=== PATIENT | female | born 1945 | race Caucasian/White ===

== ENCOUNTER → 2016-09-12 16:57 | Outpatient (CLI) | payer MEDICARE, OTHER | END | disposition home or self-care (01) | LOC: D.MAMMO 11:15 | DX: Z12.31 Encounter for screening mammogram for malignant neoplasm of breast (principal) ==

== ENCOUNTER → 2018-07-10 08:38 | Outpatient (CLI) | payer MEDICARE, OTHER | END | disposition home or self-care (01) | LOC: D.HCCARDIO 08:38 | PROVIDERS: ATTEND Internal Medicine Cardiovascular Disease | DX: I20.9 Angina pectoris, unspecified (principal); I05.9 Rheumatic mitral valve disease, unspecified; R06.09 Other forms of dyspnea ==

== ENCOUNTER → 2018-07-17 11:39 | Outpatient (CLI) | payer MEDICARE, OTHER | END | disposition home or self-care (01) | LOC: D.HCCARDIO 11:39 | PROVIDERS: ATTEND Internal Medicine Cardiovascular Disease | DX: I34.0 Nonrheumatic mitral (valve) insufficiency (principal) ==

== ENCOUNTER 2018-07-27 10:46 | Outpatient (CLI) | payer MEDICARE, OTHER ==
--- NOTE | ~2018-07-27 | HEMODYNAMI ---
PATIENT:GLENNA CLEMENTS MEDICAL RECORD: [id number] : 41 LOCATION:DEM ADMISSION DATE: 07/27/18 Generatedon:07/27/201813:23 Patient name: GLENNA CLEMENTS Patient #: [id number] SSN: : 1945 Date of study: 07/27/2018 Page: Of Hemodynamic Procedure Report Patient Data Patient Demographics Procedure consent was obtained First Name: GLENNA Gender: Female Last Name: STARR : 1945 [facility] Initial: MARINE Age: 73 year(s) Patient #: [id number] Race: Unknown Additional ID: [id number] Contact details [address]: [address] [place] [address] rd State: [place] City: [place] Zip code: [address] Past Medical History Allergies: No known allergies Admission Admission Data Admission Date: 07/27/2018 Admission Time: 10:46 Arrival Date: 07/27/2018 Arrival Time: 0:00 Admit Source: Other Insurance Payor: Medicare Height (in.): 60.63 BSA: 1.84 (m2) Height (cm.): 154 BMI: 36.26 (kg/m2) Weight (lbs.): 189.6 Weight (kg.): 86 Lab Results Lab Result Date: 07/27/2018 Lab Result Time: 11:15 Biochemistry Name Units Result Min Max BUN mg/dl 33 --(----)-* 7 18 Creatinine mg/dl 1.4 --(----)*- 0.6 1.3 CBC Name Units Result Min Max Hematocrit % 38.8 *-(----)-- 42 54 Hemoglobin g/dl 13 -*(----)-- 13.5 17.5 Procedure Procedure Types Cath Procedure Diagnostic Procedure LHC LHC w/Coronaries Aortic Root Angiography Procedure Description Procedure Date Procedure Date: 07/27/2018 Procedure Start Time: 13:06 Procedure End Time: 13:21 Procedure Staff Name Function Cheryle Villasenor RT Monitor Ravinder Carbajal MD Performing Physician Jae Go RT Scrub Loli Ellington RN Nurse Procedure Data Cath Procedure Fluoroscopy Diagnostic fluoroscopy Total fluoroscopy Time: 4.6 time: 4.6 min min Diagnostic fluoroscopy Total fluoroscopy dose: 739 dose: 739 mGy mGy Contrast Material Contrast Material Type Amount (ml) Isovue 300 100 Entry Location Entry Primary Successful Side Size Upsize Upsize Entry Closure Torres ccessful Closure Location (Fr) 1 (Fr) 2 (Fr) Remarks Device Remarks Radial Right 6 Fr Mechanical artery Short Compression Estimated blood loss: 5 ml Diagnostic catheters Device Type Used For End Catheter Placement DIAGNOSTIC Mobeetie 110cm 5 Multi-vessel Fr catheter ([id number]) Angiography DIAGNOSTIC AR MOD 5Fr Right Coronary Catheter ([id number]) Angiography DIAGNOSTIC Pigtail 5Fr Multi-vessel catheter ([id number]) Angiography Procedure Complications No complications Procedure Medications Medication Administration Route Dosage 0.9% NaCl I.V. 100 ml/hr Oxygen etCO2 Nasal cannula 2 l/min Lidocaine 2% added to field 20 Heparin Flush Bag added to field 2 bags (1000units/500ml NS) Radial Cocktail added to field 1 syringe (Verapomil 2mg/Nitro 400mcg/Heparin 1500units) Versed I.V. 2 mg Fentanyl I.V. 50 mcg Versed I.V. 1 mg Fentanyl I.V. 25 mcg Hemodynamics Rest BSA: 1.84 (m2) HGB: 13 (g/dl) O2 Consumption: Estimated: 169.49 (ml/min) O2 Cons umption indexed: Estimated:92.11 (ml/min/m) Heart Rate: 73 (bpm) Pressure Samples Time Site Value (mmHg) Purpose Heart Use Rate(bpm) 13:10 LV 78/1,15 Snapshot 40 Gradients Valve Time Site Site Mean SEP/DFP Peak To Heart Use 1 2 (mmHg) (sec/min) Peak Rate (mmHg) (bpm) Aortic 13:11 LV AO 111 Snapshots Pre Cath Intra NCS Post Cath Vital Signs Time Heart Resp SPO2 etCO2 NIBP (mmHg) Rhythm Pain Sedation Rate (ipm) (%) (mmHg) Status Level (bpm) 12:45:15 75 17 99 39 125/83(103) NSR 0 (11) 10(A) , No pain 12:49:43 80 15 98 39.8 137/71(102) NSR 0 (11) 10(A) , No pain 12:54:14 76 13 100 32.3 111/60(86) NSR 0 (11) 10(A) , No pain 12:58:36 77 12 100 33.8 97/60(74) NSR 0 (11) 9(A) , No pain 13:02:56 65 13 100 38.2 98/55(78) NSR 0 (11) 9(A) , No pain 13:07:18 71 13 99 39 91/48(72) NSR 0 (11) 9(A) , No pain 13:11:40 72 13 97 39 78/43(69) NSR 0 (11) 9(A) , No pain 13:15:54 71 13 98 35 83/48(65) NSR 0 (11) 9(A) , No pain 13:20:11 75 13 97 33.8 84/47(66) NSR 0 (11) 10(A) , No pain Medications Time Medication Route Dose Verified Delivered Reason Notes E ffectiveness by by 12:44:33 0.9% NaCl I.V. 100 Ravinder Loli used for ml/hr Solomon Ellington hand i cutter 12:44:40 Oxygen etCO2 2 l/min Ravinder Loli used for Nasal Solomon Ellington procedure cannula RN 12:44:44 Lidocaine 2% added 20ml Ravinder Ravinder for local to vial Solomon Carbajal MD anesthetic field 12:44:48 Heparin Flush added 2 bags Ravinder Ravinder used for Bag to Solomon Carbajal MD procedure (1000units/500ml field NS) 12:44:56 Radial Cocktail added 1 Ravinder Ravinder used for (Verapomil to syringe Solomon Carbajal MD procedure 2mg/Nitro field 400mcg/Hepari 12:51:09 Fentanyl I.V. 50 mcg Ravinder Loli for Solomon Ellington sedation RN 12:51:56 Versed I.V. 2 mg Ravinder Loli for Solomon Ellington sedation RN 12:56:39 Versed I.V. 1 mg Ravinder Loli for Solomon Ellington sedation RN 12:56:49 Fentanyl I.V. 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 Start room use. 12:32:32 Time tracking: Regular hours (M-F 7:00 - 5:00) 12:32:50 Plan of Care:Hemodynamics will remain stable., Cardiac rhythm will remain stable., Comfort level will be maintained., Respiratory function will remain adequate., Patient/ family verbilizes understanding of procedure., Procedure tolerated without complication., Recovers from procedure without complications.. 12:33:35 H&P Date Dictated: 07/08/2018 Within 30 days and on chart., H&P Addendum completed by physician on day of procedure. (MUST COMPLETE FOR ALL OUTPATIENTS). 12:35:10 Lab Result : Hemoglobin 13 g/dl 12:35:10 Lab Result : Hematocrit 38.8 % 12:35:10 Lab Result : BUN 33 mg/dl 12:35:10 Lab Result : Creatinine 1.4 mg/dl 12:35:13 Lab results completed and on chart. 12:35:18 Patient received from Pre/Post Procedure Room to CCL 1 Alert and oriented. Tansferred to table in Supine position. 12:35:19 Correct patient and procedure confirmed by team. 12:35:19 Warm blankets applied, and carlito hugger turned on for patient comfort. 12:35:20 Pre-procedure instructions explained to patient. 12:35:20 ECG and BP/O2 sat monitors applied to patient. 12:35:21 Pre-op teaching completed and patient verbalized understanding. 12:35:24 Family in waiting room. 12:35:25 Patient NPO since Midnight. 12:35:32 Patient allergic to No known allergies 12:43:52 Vital chart was started 12:44:33 0.9% NaCl 100 ml/hr I.V. was administered by Loli Ellington RN; used for procedure; 12:44:40 Oxygen 2 l/min etCO2 Nasal cannula was administered by Loli Ellington RN; used for procedure; 12:44:44 Lidocaine 2% 20ml vial added to field was administered by Ravinder Carbajal MD; for local anesthetic; 12:44:48 Heparin Flush Bag (1000units/500ml NS) 2 bags added to field was administered by Ravinder Carbajal MD; used for procedure; 12:44:56 Radial Cocktail (Verapomil 2mg/Nitro 400mcg/Heparin 1500units) 1 syringe added to field was administered by Ravinder Carbajal MD; used for procedure; 12:48:31 Is the patient allergic to Iodine/contrast media? No. 12:48:32 Was the patient premedicated? No 12:48:33 Is patient on blood thinner?No 12:48:34 Patient diabetic? No. 12:48:39 Previous problem with sedation/anesthesia? No ? 12:48:41 Snore? Yes 12:48:42 Sleep apnea? No 12:48:43 Deviated septum? No 12:48:44 Opens mouth fully? Yes 12:48:50 Sticks out tongue? Yes 12:49:10 Airway obstruction? Yes asthma 12:49:14 Dentures? Yes in tight 12:50:18 Pre procedure: right dorsailis pedis pulse 2+ Normal; easily identifiable; not easily obliterated 12:50:20 Pre procedure: left dorsailis pedis pulse 2+ Normal; easily identifiable; not easily obliterated 12:50:23 Patient pain scale 0/10 ?. 12:50:31 IV patent on arrival in left forearm with 0.9% NaCl at KVO. 12:50:34 Lab results completed and on chart. 12:50:43 Right Radial & Right Groin area was prepped with chlora-prep and draped in sterile fashion 12:50:44 Sharps counted by scrub and verified by R.N. 12:50:44 Alarms reviewed by R. N. 12:50:49 --------ALL STOP TIME OUT------ 12:50:49 Physician arrived 12:50:50 Final Timeout: patient, procedure, and site verified with staff and physician. All members of the team are in agreement. 12:50:55 Right Radial & Right Groin site verified by team. 12:50:59 Maximum allowable Isovue 370 dose 300ml. Physician notified. (300ml for normal creatinines. For patients with creatinine of 1.7 or higher multiply weight(kg) x 5 divided by creatinine.) 12:51:03 Fire Safety Assessment: A--An alcohol-based skin anteseptic being used preoperatively., C--Open oxygen or nitrous oxide is being used., D--An ESU, laser, or fiber-optic light is being used. 12:51:08 Physical assessment completed. ASA score P 2 - A patient with mild systemic disease as per Ravinder Carbajal MD. 12:51:09 Fentanyl 50 mcg I.V. was administered by Loli Ellington RN; for sedation; 12:51:12 Sedation plan: IV Moderate Sedation Medication:Versed, Fentanyl 12:51:56 Versed 2 mg I.V. was administered by Loli Ellington RN; for sedation; 12:52:14 Patient Weight : 189.6 lbs 12:52:18 Patient Height : 60.63 inches 12:54:55 Arrival Date: 07/27/2018 12:00:00 AM 12:55:00 Insurance Payor : Medicare 12:55:30 Baseline sample Acquired. 12:55:34 Rhythm: sinus rhythm 12:55:41 Baseline sample Acquired. 12:56:39 Versed 1 mg I.V. was administered by Loli Ellington RN; for sedation; 12:56:49 Fentanyl 25 mcg I.V. was administered by Loli Ellington RN; for sedation; 12:57:21 Use device set Radial Dx or PCI 12:57:22 ACIST Syringe (76675) opened to sterile field. 12:57:23 Medline Cath Pack ([id number]) opened to sterile field. 12:57:24 Bag Decanter (2002) opened to sterile field. 12:57:25 DIAGNOSTIC WIRE .035 260cm J wire (434467) opened to sterile field. 12:57:26 ACIST Hand Control (57444) opened to sterile field. 12:57:27 Tegaderm 4 x 4 (1626W) opened to sterile field. 12:57:27 ACIST Manifold (14734) opened to sterile field. 12:57:28 MBrace Wrist Support ([id number]) opened to sterile field. 12:57:34 NEEDLE Cook 21G 4cm Radial (V28106) opened to sterile field. 12:57:39 SHEATH 6FR Slender (83-0614) opened to sterile field. 12:58:35 Zero performed for pressure channel P1 13:06:17 Procedure started. 13:06:18 Full Disclosure recording started 13:06:25 Local anesthetic to right radial artery with Lidocaine 2% by Ravinder Carbajal MD.INITIAL ACCESS ONLY 13:07:47 A 6 Fr Short sheath was inserted into the Right Radial artery 13:08:27 A DIAGNOSTIC Mobeetie 110cm 5 Fr catheter (526526) was advanced over the wire and used for Multi-vessel Angiography. 13:10:32 LV hemodynamics recorded. 13:10:33 LV gram done using BRANTLEY 13:10:36 Injector settings: Ml/sec: 5, Volume: 15, 13:10:48 EF : 55 % 13:11:40 LCA angiography performed. 13:11:43 Injector settings: Ml/sec: 3, Volume: 6, 13:13:47 Catheter removed. 13:14:28 A DIAGNOSTIC AR MOD 5Fr Catheter ([id number]) was advanced over the wire and used for Right Coronary Angiography. 13:16:03 RCA angiography performed. 13:16:39 Injector settings: Ml/sec: 3, Volume: 6, 13:16:41 Catheter removed. 13:17:44 A DIAGNOSTIC Pigtail 5Fr catheter (438491U) was advanced over the wire and used for Multi-vessel Angiography. 13:18:12 Aortic Root visualized 13:18:30 TR BAND Standard ([id number]) opened to sterile field. 13:18:38 Catheter removed. 13:18:52 Sheath removed intact; hemostasis achieved with Mechanical Compression to the Right Radial artery. 13:18:56 Procedure ended.(Physican Out) 13:19:37 Fluoroscopy time 04.60 minutes. 13:19:42 Fluoroscopy dose: 739 mGy 13:19:42 Flurop Dose total: 739 13:19:47 Contrast amount:Isovue 300 100ml. 13:19:49 Sharps counted by scrub and verified by R.N. 13:20:16 Insertion/operative site no bleeding no hematoma. 13:20:28 Post right radial artery:stable 13:20:30 Post Procedure Pulses reassessed and unchanged 13:20:32 Post procedure rhythm: unchanged. 13:20:35 Estimated blood loss: 5 ml 13:20:37 Patient needs reinforcement of post procedure teaching. 13:20:37 Post procedure instruction explained to patient.Patient verbalizes understanding. 13:20:45 Procedure and supply charges have been captured, reviewed, submitted and are correct. 13:20:49 Procedure Complication : No complications 13:20:52 Vital chart was stopped 13:20:53 See physician's report for complete and final results. 13:20:58 Report given to Pre/Post Procedure Room. 13:21:03 Patient transfered to Pre/Post Procedure Room with Stretcher. 13:21:05 Full Disclosure recording stopped 13:21:05 Procedure ended. 13:21:08 End room use (Document Last) 13:21:24 TR band inflated with 10cc of air. 13:22:45 Procedure type changed to Cath procedure, Diagnostic procedure, LHC, LHC w/Coronaries, Aortic Root Angiography Device Usage Item Name Manufacture Quantity Catalog Hospital Part Current Minimal Lot# / Number Charge Number Stock Stock Serial# Code ACIST Acist 1 54621 605178 182091 856596 20 Syringe Medical (16025) Systems Inc Medline Medline 1 [id number] 438628 63079 733739 5 Cath Pack ([id number]) Bag Microtek 1 2001S 373522 54258 738045 5 Decanter Medical Inc. () DIAGNOSTIC [place] 1 209179 000622 744416 705389 30 WIRE .035 260cm J wire (670226) ACIST Hand Acist 1 26355 294207 939495 930320 5 Control Medical (29507) Systems Inc ACIST Acist 1 81823 092708 957779 329113 5 Manifold Medical (30390) Systems Inc Tegaderm 4 3M 1 1626W 133976 768944 877680 5 x 4 (1626W) MBrace Advanced 1 140-0250-00 445772 95993 269963 5 Wrist Vascular Support Dynamics ([id number]) NEEDLE Cook Cook Medical 1 K42277 300426 063579 156487 5 21G 4cm Radial (C05309) SHEATH 6FR Terumo 1 [id number] 307225 331821 005445 5 Slender (80-1060) DIAGNOSTIC Terumo 1 40-8378 405283 592055 229636 5 Mobeetie 110cm 5 Fr catheter (765934) DIAGNOSTIC Cardinal 1 [id number] 884063 586013 523817 15 AR MOD 5Fr Health Catheter (951427S) DIAGNOSTIC Cardinal 1 [id number] 374575 104362 212561 5 Pigtail 5Fr Health catheter (686854J) TR BAND Terumo 1 [id number] 675913 898055 499403 40 Standard (XRW59LEX) Signature Audit [place] Stage Time Signature Unsigned Intra-Procedure 07/27/2018 Cheryle Villasenor 1:23:15 PM RT(R) Signatures Monitor : Cheryle Villasenor RT Signature : Date : Time : [place] [id number] [facility] [place] [address]
[2018-07-27] MEDS ORDERED: LOTENSIN20 MG PO (11:04)
[2018-07-27] MEDS ORDERED: BAYER ASPIRIN325 MG PO (11:05)
[2018-07-27] MEDS ORDERED: NORVASC5 MG PO (11:05)
[2018-07-27] MEDS ORDERED: HYDROCHLOROTHIA25 MG PO (11:06)
[2018-07-27] MEDS ORDERED: LIPITOR20 MG PO (11:06)
[2018-07-27 11:16] VITALS: BP 115/70; BMI 35.9
[2018-07-27 11:26] LABS: BASOPHILS 0.6 % (0-2); EOSINOPHILS 1.6 % (0-7); HEMATOCRIT 38.8 % (36.0-48.0); IMMATURE GRANULOCYTES 0.3 % (0-5); LYMPHOCYTES 30.5 % (15-50); MCH 30.8 pg (26.0-34.0); MCHC 33.5 g/dL (31.0-37.0); MCV 91.9 fL (80.0-100.0); MEAN PLATELET VOLUME 11.7 fL (7.4-10.4); MONOCYTES 7.5 % (2-11); NEUTROPHILS 59.5 % (40-80); PLATELET COUNT 194 10x3/uL (130-400); RBC 4.22 10x6/uL (4.00-5.40); RDW 13.8 % (11.5-14.5)
[2018-07-27 11:52] LABS: ANION GAP 14.9 mmol/L (8-16); CALCIUM 9.3 mg/dL (8.5-10.1); CARBON DIOXIDE 26.7 mmol/L (21.0-32.0); CREATININE - SERUM 1.4 mg/dL (0.6-1.3); POTASSIUM - SERUM 4.6 mmol/L (3.5-5.1)
== END 2018-07-27 16:00 | disposition home or self-care (01) ==
LOC: D.CATH 10:46
PROVIDERS: Internal Medicine Cardiovascular Disease
DX: I20.9 Angina pectoris, unspecified (principal); I35.1 Nonrheumatic aortic (valve) insufficiency; R06.00 Dyspnea, unspecified; Z01.812 Encounter for preprocedural laboratory examination

== ENCOUNTER → 2019-08-03 09:39 | Outpatient (CLI) | payer MEDICARE, OTHER ==
[~2019-08-03 09:39] MED LIST: BAYER ASPIRIN325 MG PO; HYDROCHLOROTHIA25 MG PO; LIPITOR20 MG PO; LOTENSIN20 MG PO; NORVASC5 MG PO
== END | disposition home or self-care (01) ==
LOC: D.HCCECHO 09:39
PROVIDERS: ATTEND Internal Medicine Cardiovascular Disease
DX: I34.0 Nonrheumatic mitral (valve) insufficiency (principal)